=== PATIENT | female | born 1970 | race Caucasian/White ===

== ENCOUNTER 2020-03-22 17:51 | Emergency (ER) | payer MEDICAID ==
[~2020-03-22] VITALS: Ht 153.7 cm; Wt 68.5 kg
[2020-03-22 18:01] VITALS: BP 121/69
[2020-03-22] MEDS ORDERED: KETOROLAC 60 MG/2 ML VIAL IM ONE (18:30)
[2020-03-22 18:48] VITALS: BP 121/69
== END 2020-03-22 18:48 | disposition home or self-care (01) ==
LOC: MED 17:51
DX: R51 Headache (principal); J45.909 Unspecified asthma, uncomplicated; R20.0 Anesthesia of skin; R20.2 Paresthesia of skin
CPT/HCPCS: 81002; 82948; 96372; 99283; J1885